=== PATIENT | male | born 1985 | race African-American/Black ===

== ENCOUNTER 2021-05-25 21:14 | Emergency (ER) | payer SELFPAY ==
[2021-05-25 21:18] VITALS: BP 157/98; PULSE 97; RESP 14; TEMP 36.7; O2SAT 97
[2021-05-25] MEDS: TETANUS,DIPHTHERIA,AC PERTUSSIS ADULT (0.5 ML) BOOSTRIX IM (21:47)
--- NOTE | 2021-05-25 22:25 | ED.WOUNDLAC ---
HPI - Wound/Laceration General Chief Complaint: Wound/Laceration Stated Complaint: hand lac Time Seen by Provider: 05/25/21 21:36 Source: RN notes reviewed History of Present Illness HPI narrative: Patient presents to emergency department from home for laceration of left hand. The patient is right-hand dominant laceration at the base of the second digit over the lateral aspect states he was cutting cauliflower with a paring knife denies any other trauma or injury denies any numbness or tingling or any other symptoms Related Data Home Medications Medication Instructions Recorded Confirmed acetaminophen [Tylenol] 325 mg PO ONCE 05/25/21 cyclobenzaprine [Flexeril] 5 mg PO HS 05/25/21 naproxen 500 mg PO BID 05/25/21 Allergies Allergy/AdvReac Type Severity Reaction Status Date / Time No Known Allergies Allergy Mild Verified 05/25/21 21:37 Review of Systems Review of Systems: Gen.: Denies fevers or chills Musculoskeletal: See HPI Neuro: Denies numbness, tingling, weakness Skin: Reports laceration Endo: Denies DM PMFSH Past Medical History Medical History (Updated 05/25/21 @ 22:29 by Dameon Jordan DO) Patient denies significant medical history Social History Social History (Updated 05/25/21 @ 22:28 by Dameon Jordan DO) Smoking status: Never smoker Exam Narrative: APPEARANCE: No acute distress, nontoxic, resting in bed Eyes: EOMI HEENT: Normocephalic, atraumatic, RESPIRATORY: No respiratory distress MUSCULOSKELETAl: Full flexion-extension of the left second MCP, PIP and DIP joint, capillary refill less than 3 seconds in the second digit NEURO: Awake and alert. Following commands, speech normal, no focal deficits SKIN:: Warm, dry. Normal 2 cm laceration over the left hand proximal to the MCP joint over the lateral second digit is linear and deep with mild venous bleeding no tendon laceration Course Course Emergency Course: Discussed with patient results of workup and diagnosis. Discussed need for follow-up with primary care, proper use of medication, and reasons to return to the emergency department. Patient understands and agrees to current treatment plan Vital Signs Vital signs: Vital Signs Temperature 98.0 F 05/25/21 21:18 Pulse Rate 97 05/25/21 21:18 Respiratory Rate 14 05/25/21 21:18 Blood Pressure 157/98 H 05/25/21 21:18 Pulse Oximetry 97 05/25/21 21:18 Temperature 98.0 F 05/25/21 21:18 Pulse Rate 97 05/25/21 21:18 Respiratory Rate 14 05/25/21 21:18 Blood Pressure 157/98 H 05/25/21 21:18 Pulse Oximetry 97 05/25/21 21:18 Procedures Laceration Laceration 1: ====== Skin Level ====== ====== Subcutaneous Layer ====== ====== Muscle Layer ====== ====== Tendon Layer ====== Dressin cm hand laceration: Verbal consent was obtained prior to the procedure. The wound was cleaned with Betadine and irrigated with copious amounts of normal saline. Lidocaine 1% with epinephrine was used for anesthesia. Wound was explored is no foreign body seen. The wound was then closed with 4 4-0 nylon in simple interrupted fashion. A sterile dressing was applied following the procedure. Patient tolerated the procedure well Discharge Plan Discharge Clinical Impression: Laceration of hand, left Patient Disposition: Home, Self-Care Condition: Stable Instructions: Antibiotic Form, Laceration (ED) Additional Instructions: Return for bleeding from the wound signs of infection or any other symptoms of concern. Your stitches need to be removed in 7-10 days and you may go to your physician or return to the emergency department for removal. Prescriptions: No Action naproxen 500 mg Tablet 500 mg PO BID RF: 0 cyclobenzaprine [Flexeril] 5 mg Tablet 5 mg PO HS RF: 0 acetaminophen [Tylenol] 325 mg Capsule 325 mg PO ONCE RF: 0 Follow-up/Referrals: Spencer Eldridge MD [Physician] - 3 Days UNKNOWN,DOCTOR [Primary Care
[2021-05-25 22:39] VITALS: BP 143/98; PULSE 88; RESP 18; TEMP 36.8; O2SAT 96
== END 2021-05-25 22:50 | disposition home or self-care (01) ==
PROVIDERS: Emergency Provider Emergency Medicine
DX: S61.412A Laceration without foreign body of left hand, initial encounter (principal); W26.0XXA Contact with knife, initial encounter; Z23 Encounter for immunization
CPT/HCPCS: 12001; 90471; 90715; 99282

== ENCOUNTER 2021-06-02 16:42 | Emergency (ER) | payer SELFPAY ==
--- NOTE | 2021-06-02 16:47 | ED.WOUNDLAC ---
HPI - Wound/Laceration General Chief Complaint: Wound/Laceration Stated Complaint: remove stitches Time Seen by Provider: 06/02/21 16:47 Source: patient and RN notes reviewed History of Present Illness HPI narrative: Patient is a 36-year-old male who presents the urgent care with request to have sutures removed. Patient was seen in the emergency room on May 25 for a left hand laceration. 4 sutures were placed at that time. Patient states he has had no complications with the sutures. Denies of any drainage or redness to the area. No other acute complaints. No acute distress noted. Patient read the plan of care. Some parts of this dictation were generated by voice recognition software and may contain typographical and/or grammatical inaccuracies. Related Data Home Medications Medication Instructions Recorded Confirmed acetaminophen [Tylenol] 325 mg PO ONCE 05/25/21 cyclobenzaprine [Flexeril] 5 mg PO HS 05/25/21 naproxen 500 mg PO BID 05/25/21 Allergies Allergy/AdvReac Type Severity Reaction Status Date / Time No Known Allergies Allergy Mild Verified 05/25/21 21:37 Review of Systems Review of Systems: CONSTITUTIONAL: Denies fever, chills, or sweats. EYES: Denies visual changes, redness, or discharge. ENT: Denies rhinorrhea, congestion, sore throat, or otalgia. CARDIOVASCULAR: Denies chest pain, palpitations, or edema. RESPIRATORY: Denies cough or dyspnea. GASTROINTESTINAL: Denies abdominal pain, nausea, vomiting, or diarrhea. GENITOURINARY: Denies dysuria or hematuria. SKIN: Request for suture removal to the left hand MUSCULOSKELETAL: Denies back pain, joint pain, or myalgia. NEUROLOGIC: Denies headache, numbness, or weakness. All other systems reviewed are negative, except as documented in HPI. PMFSH Past Medical History Medical History (Updated 06/02/21 @ 17:01 by RADHA Ocampo) Patient denies significant medical history Social History Social History (Updated 05/25/21 @ 22:28 by Dameon Jordan DO) Smoking status: Never smoker Comments At the time of my signature, I reviewed and agree with the nursing past medical, surgical, social, and family history. There is no relevant family history pertinent to the patient complaint. Exam Narrative: GENERAL: This is a well-nourished, well-developed patient, in no apparent distress. HEAD: normocephalic, atraumatic. EYES: PERRL. Sclera clear/white. Vision is grossly intact. EARS: External ears normal NOSE: External nose normal with no obvious nasal discharge, nares without redness, no rhinorrhea. THROAT: Mucous membranes moist NECK: Neck supple CARDIOVASCULAR: Regular rate and rhythm without murmurs, gallops, or rubs. RESPIRATORY: Clear to auscultation. Breath sounds equal bilaterally. No wheezes, rales, or rhonchi. GASTROINTESTINAL: Abdomen soft, non-tender, nondistended. Bowel sounds are active. No hepato-splenomegaly, or palpable masses. No guarding. SKIN: 2 cm linear approximated laceration with 4 sutures noted to the left index finger. Warm, intact with no suspicious lesions or rash, good texture and turgor. NEURO: awake, alert, and oriented to person, place and time. There were no obvious focal neurologic abnormalities. EXTREMITIES: No clubbing, cyanosis, or edema. Course Vital Signs Vital signs: Vital Signs Temperature 98.3 F 06/02/21 16:48 Pulse Rate 88 06/02/21 16:48 Respiratory Rate 16 06/02/21 16:48 Blood Pressure 120/92 H 06/02/21 16:48 Pulse Oximetry 100 06/02/21 16:48 Temperature 98.3 F 06/02/21 16:48 Pulse Rate 88 06/02/21 16:48 Respiratory Rate 16 06/02/21 16:48 Blood Pressure 120/92 H 06/02/21 16:48 Pulse Oximetry 100 06/02/21 16:48 Reviewed-patient is informed that they may have pre-hypertension or hypertension based on a blood pressure reading in the department. I recommend the patient call the primary care provider listed on their discharge instructions or a physician of their cho
[2021-06-02 16:48] VITALS: BP 120/92; PULSE 88; RESP 16; TEMP 36.8; O2SAT 100
== END 2021-06-02 17:08 | disposition home or self-care (01) ==
PROVIDERS: Emergency Provider Nurse Practitioner Family
DX: Z48.02 Encounter for removal of sutures (principal); Z79.1 Long term (current) use of non-steroidal anti-inflammatories (NSAID)
CPT/HCPCS: 99211; G0463

== ENCOUNTER 2022-09-12 21:28 | Emergency (ER) | payer BC, SELFPAY ==
[2022-09-12 21:43] VITALS: BP 152/87; PULSE 111; RESP 18; TEMP 37.5; O2SAT 98
[2022-09-12 22:38] LABS: Influenza A QL RT-PCR Negative (Negative); Influenza B QL RT-PCR Negative (Negative); RSV RNA, RT-PCR Negative (Negative); SARS-CoV-2 RNA PCR Positive
--- NOTE | 2022-09-12 23:03 | ED.URI ---
HPI - URI/Sore Throat General Chief Complaint: Upper Respiratory Infection Stated Complaint: I think i have covid Time Seen by Provider: 09/12/22 21:37 History of Present Illness HPI Narrative: 37-year-old male presents to the emergency room I think I have COVID . Patient states his girlfriend was tested positive yesterday. Patient complains of a sudden onset of body aches, cough, fever and a headache. Denies any shortness of breath or difficulty breathing. Related Data Home Medications Medication Instructions Recorded Confirmed acetaminophen 325 mg capsule 325 mg PO ONCE 05/25/21 (Tylenol) cyclobenzaprine 5 mg tablet 5 mg PO HS 05/25/21 naproxen 500 mg tablet 500 mg PO BID 05/25/21 Allergies Allergy/AdvReac Type Severity Reaction Status Date / Time No Known Allergies Allergy Mild Verified 05/25/21 21:37 Review of Systems Review of Systems: CONSTITUTIONAL: Reports fever EYES: Denies visual changes, redness, or discharge. ENT: Reports congestion CARDIOVASCULAR: Denies chest pain, palpitations, or edema. RESPIRATORY: Reports cough GASTROINTESTINAL: Denies abdominal pain, nausea, vomiting, or diarrhea. GENITOURINARY: Denies dysuria or hematuria. SKIN: Denies rash or itching. MUSCULOSKELETAL: Denies back pain, joint pain, or myalgia. NEUROLOGIC: Denies headache, numbness, dizziness, or weakness. PSYCHIATRIC: Denies anxiety or depression. [facility] Past Medical History Medical History (Updated 09/12/22 @ 23:07 by Tim Santillan APRN) Patient denies significant medical history Social History Social History (Updated 05/25/21 @ 22:28 by Dameon Jordan DO) Smoking status: Never smoker Exam Narrative: GENERAL: Well-appearing, well-nourished, no physical limitations, and in no acute distress. HEAD: Normocephalic, atraumatic. EYES: Conjunctivae normal, PERRLA and EOMI. ENT: External nose normal, Nares clear, no rhinorrhea or epistaxis. Mucous membranes moist. Oropharynx without tonsillar hypertrophy exudate or other lesions. External ears normal, bilateral TMs normal bilaterally NECK: Supple. No adenopathy or masses. CHEST: Clear to auscultation. No respiratory distress. No wheezes rales or rhonchi. HEART: Regular rate and rhythm. No murmur heard. Normal peripheral pulses. EXTREMITIES: Normal range of motion. No edema. No clubbing or cyanosis SKIN: Warm, dry, no rash. No noted wounds NEURO: No focal deficits. Alert and oriented x3. MAEW. CN's II-XI intact bilaterally, normal gait PSYCH: Cooperative. Normal mood and affect. Course Vital Signs Vital signs: Vital Signs Temperature 37.5 C 09/12/22 21:43 Pulse Rate 111 H 09/12/22 21:43 Respiratory Rate 18 09/12/22 21:43 Blood Pressure 152/87 H 09/12/22 21:43 Pulse Oximetry 98 09/12/22 21:43 Oxygen Delivery Room Air 09/12/22 21:43 Temperature 37.5 C 09/12/22 21:43 Pulse Rate 111 H 09/12/22 21:43 Respiratory Rate 18 09/12/22 21:43 Blood Pressure 152/87 H 09/12/22 21:43 Pulse Oximetry 98 09/12/22 21:43 Oxygen Delivery Room Air 09/12/22 21:43 MDM - URI/Sore Throat Lab Data Labs: Lab Results 09/12/22 Range/Units 21:52 Influenza A (RT-PCR) Negative (Negative) Influenza B (RT-PCR) Negative (Negative) RSV (RT-PCR) Negative (Negative) SARS-CoV-2 RNA (RT-PCR) Positive A Discharge Plan Discharge Clinical Impression: COVID Patient Disposition: Home, Self-Care Condition: Stable Instructions: Antibiotic Form, COVID-19 (Coronavirus Disease 2019) (ED) Additional Instructions: Recommend taking Tylenol, ibuprofen and Mucinex DM for your symptoms. Also recommend quarantining for the next 4 to 5 days per CDC guidelines. Prescriptions: No Action naproxen 500 mg Tablet 500 mg PO BID cyclobenzaprine [Flexeril] 5 mg Tablet 5 mg PO HS acetaminophen [Tylenol] 325 mg Capsule 325 mg PO ONCE Follow-up/Referrals: UNKNOWN,DOCTOR [Primary Care
== END 2022-09-12 23:09 | disposition home or self-care (01) ==
PROVIDERS: Emergency Medicine; Emergency Provider Nurse Practitioner Family
DX: U07.1 COVID-19 (principal)
CPT/HCPCS: 87637; 99283